=== PATIENT | female | born 1955 | race American Indian/Alaskan Native ===

== ENCOUNTER 2021-02-10 12:03 | Emergency (ER) | payer MEDICARE, BC ==
[~2021-02-10] VITALS: Ht 160 cm; Wt 62.0 kg
[2021-02-10 12:14] VITALS: BP 97/65
== END 2021-02-10 16:45 | disposition left against medical advice (07) ==
LOC: ER 12:03
DX: Z53.21 Procedure and treatment not carried out due to patient leaving prior to being seen by health care provider (principal)

== ENCOUNTER 2021-09-19 12:35 | Emergency (ER) | payer MEDICARE, BC ==
[~2021-09-19] VITALS: Ht 157.5 cm; Wt 57.0 kg
[2021-09-19 14:52] LABS: BASOPHILS % 1.4 % (0.0-2.0); HEMATOCRIT. 41.5 % (36.0-48.0); HEMOGLOBIN. 13.9 g/dL (12.0-16.0); LYMPHOCYTES % 24.9 % (20.0-50.0); MEAN CORPUSCULAR HEMOGLOBIN 28.4 pg (28.0-32.0); MEAN CORPUSCULAR VOLUME 84.7 fL (81.0-99.0); MEAN PLATELET VOLUME 7.9 fl (7.4-10.4); MONOCYTES % 5.2 % (2.0-8.0); NEUTROPHILS % 62.5 % (40.0-76.0); PLATELET 305 x1000/uL (130-400); RED CELL DISTRIBUTION WIDTH 14.1 % (11.6-14.6)
[2021-09-19 15:01] LABS: CHLORIDE 114 mEq/L (98-107)
[2021-09-19 15:30] VITALS: BP 144/78
[2021-09-19] MEDS ORDERED: ASPI-1497 MT (16:14)
[2021-09-19] MEDS ORDERED: ASPIRIN 325MG EC TABLET PO ONE (16:15)
== END 2021-09-19 16:39 | disposition left against medical advice (07) ==
LOC: ER 12:35
DX: R42 Dizziness and giddiness (principal)
CPT/HCPCS: 36415; 71045; 80053; 83880; 84484; 85025; 93005; 99285